=== PATIENT | female | born 1985 | race Two or more races ===

== ENCOUNTER 2023-01-02 08:25 | Inpatient (IN) | payer OTHER ==
[2023-01-02] MEDS ORDERED: CITRIC ACID/SODIUM CITRATE 30 ML UNIT-DOSE CUP PO ONE (08:35)
[2023-01-02] MEDS: ELECTROLYTE-148 SOLN 1,000 ML IV SCH ×3 (09:17→13:30)
[2023-01-02] MEDS ORDERED: ACETAMINOPHEN 325 MG TABLET (FP) PO PRN ×2 (10:20→12:55)
[2023-01-02] MEDS ORDERED: IBUPROFEN 600 MG TABLET (FP) PO PRN (10:20)
[2023-01-02 10:45] VITALS: BMI 48.2
[2023-01-02] MEDS: OXYTOCIN 20 UNITS in 0.9% NS 20 UNIT/1,000 ML INFUS.BAG IV SCH ×2 (11:30→13:45)
[2023-01-02] MEDS ORDERED: morphine SULFATE/PF 1 MG/2 ML (2cc Syringe - QUVA) ONE (11:44)
[2023-01-02] MEDS ORDERED: ceFAZolin SODIUM 1 GM VIAL ONE (12:48)
[2023-01-02] MEDS ORDERED: OXYTOCIN 10 UNITS/ML VIAL ONE (12:48)
[2023-01-02] MEDS ORDERED: METHYLERGONOVINE MALEATE 0.2 MG/1 ML AMP IM PRN (12:55)
[2023-01-02] MEDS ORDERED: IBUPROFEN 800 MG/8 ML IJ IVPB PRN (12:56)
[2023-01-02] MEDS ORDERED: OXYTOCIN 20 UNITS in 0.9% NS 20 UNIT/1,000 ML INFUS.BAG IV ONE (13:13)
[2023-01-02 13:26] LABS: CORD BASE EXCESS -4.2 mmol/L (0-2); CORD HCO3 23.9 mmHg (20-29); CORD PCO2 56.2 mmHg (30-78); CORD pH 7.247 (7.14-7.44)
[2023-01-02 13:31] LABS: CORD BASE EXCESS -3.6 mmol/L (0-2); CORD HCO3 22.8 mmHg (20-29); CORD PCO2 45.7 mmHg (30-78); CORD pH 7.315 (7.14-7.44)
[2023-01-02 13:45] LABS: CORD HCO3 23.9 mmHg (20-29); CORD pH 7.272 (7.14-7.44)
[2023-01-02 13:48] LABS: CORD HCO3 26.6 mmHg (20-29); CORD PCO2 68.6 mmHg (30-78); CORD pH 7.207 (7.14-7.44)
[2023-01-02] MEDS: CEFAZOLIN SODIUM 2 GM in DEXTROSE 5%-WATER 100 ML IVPB SCH (18:36)
[2023-01-02] MEDS: ceFAZolin 2 GRAM PREMIX BAG IVPB SCH (18:43)
[2023-01-03] MEDS ORDERED: oxyCODONE HCL 5 MG TABLET PO PRN ×2 (00:55)
[2023-01-03] MEDS: CEFAZOLIN SODIUM 2 GM in DEXTROSE 5%-WATER 100 ML IVPB SCH ×2 (01:03→10:56)
[2023-01-03] MEDS: ceFAZolin 2 GRAM PREMIX BAG IVPB SCH ×2 (01:04→10:00)
[2023-01-03 08:28] LABS: BASO % 0.5 % (0-2.0); EOS % 0.9 % (0-4.5); HEMATOCRIT 32.4 % (32.4-45.2); HEMOGLOBIN 11.1 GM/dL (10.7-15.3); LYMPH % 14.1 % (8-40); MCH 32.3 pg (25.7-33.7); MCHC 34.2 g/dl (32.0-36.0); MEAN CELL VOLUME 94.5 fl (80-96); MEAN PLT VOLUME 8.8 fl (7.5-11.1); MONO % 5.7 % (3.8-10.2); NEUT % 78.8 % (42.8-82.8); PLATELET COUNT 198 10^3/uL (134-434); RBC 3.42 M/mm3 (3.60-5.2); RDW 13.9 % (11.6-15.6); WHITE BLOOD COUNT 9.5 K/mm3 (4.0-10.0)
[2023-01-03] MEDS: ENOXAPARIN NA (PORCINE) 40 MG/0.4 ML DISP.SYRIN SQ SCH (10:56)
[2023-01-03] MEDS ORDERED: BISACODYL 10 MG SUPP.RECT RC PRN (12:55)
[2023-01-03] MEDS: IBUPROFEN 600 MG TABLET (FP) PO PRN ×2 (18:22→23:23)
[2023-01-03] MEDS: SIMETHICONE 80 MG TAB.CHEW (FP) PO PRN ×2 (18:22→23:24)
[2023-01-04] MEDS: ENOXAPARIN NA (PORCINE) 40 MG/0.4 ML DISP.SYRIN SQ SCH (10:55)
[2023-01-04] MEDS: IBUPROFEN 600 MG TABLET (FP) PO PRN (18:12)
[2023-01-04] MEDS: ELECTROLYTE-148 SOLN 1,000 ML IV SCH (18:57)
[2023-01-05 07:33] LABS: BASO % 0.8 % (0-2.0); HEMATOCRIT 26.8 % (32.4-45.2); HEMOGLOBIN 9.2 GM/dL (10.7-15.3); LYMPH % 21.4 % (8-40); MCH 32.8 pg (25.7-33.7); MCHC 34.3 g/dl (32.0-36.0); MEAN CELL VOLUME 95.7 fl (80-96); MONO % 5.3 % (3.8-10.2); NEUT % 67.5 % (42.8-82.8); PLATELET COUNT 211 10^3/uL (134-434); RDW 13.9 % (11.6-15.6); WHITE BLOOD COUNT 7.9 K/mm3 (4.0-10.0)
[2023-01-05] MEDS: ENOXAPARIN NA (PORCINE) 40 MG/0.4 ML DISP.SYRIN SQ SCH (09:29)
[2023-01-06] MEDS: OXYTOCIN 20 UNITS in 0.9% NS 20 UNIT/1,000 ML INFUS.BAG IV SCH (07:10)
[2023-01-06 08:16] VITALS: BP 111/73; PULSE 87; RESP 17; TEMP 99.1
[2023-01-06] MEDS: ENOXAPARIN NA (PORCINE) 40 MG/0.4 ML DISP.SYRIN SQ SCH (09:29)
== END 2023-01-06 12:50 | disposition home or self-care (01) | DRG 540 ==
LOC: JLDR 08:25 → J3W 14:40
PROVIDERS: ADMIT Obstetrics & Gynecology; ATTEND Obstetrics & Gynecology
PROC: 10D00Z1 Extraction of Products of Conception, Low, Open Approach (ICD-10-PCS; principal; 2023-01-02)
PROC: 0UT70ZZ Resection of Bilateral Fallopian Tubes, Open Approach (ICD-10-PCS; 2023-01-02)
DX: O30.043 Twin pregnancy, dichorionic/diamniotic, third trimester (principal); Z3A.39 39 weeks gestation of pregnancy; Z37.2 Twins, both liveborn
CPT/HCPCS: 36415; 36600; 80048; 82803; 85025; 85610; 85730; 86780; 86850; 86900; 86901; 87635; 88302-TC; 88307-TC